=== PATIENT | female | born 1945 | race Caucasian/White ===

== ENCOUNTER 2018-07-30 16:37 | Observation (INO) | payer OTHER ==
[~2018-07-30] VITALS: Ht 160 cm; Wt 55.4 kg
[2018-07-30] MEDS ORDERED: Micro-K10 MEQ (17:25)
[2018-07-30] MEDS ORDERED: TRAZ50 PO (17:25)
[2018-07-30] MEDS ORDERED: TRIA50 PO (17:25)
[2018-07-30 17:34] LABS: Source, Urine Clean Catch
[2018-07-30 17:37] LABS: BASOPHILS ABSOLUTE AUTO 0.03 K/mm3 (0.00-0.23); BASOPHILS PERCENT AUTO 0 % (0-2); EOSINOPHILS ABSOLUTE AUTO 0.17 K/mm3 (0.00-0.68); EOSINOPHILS PERCENT AUTO 2 % (0-6); Hematocrit 39.8 % (33.0-51.0); Hemoglobin 13.5 g/dL (11.5-16.0); IMMATURE GRAN ABSOLUTE AUTO 0.03 K/mm3 (0.00-0.10); IMMATURE GRAN PERCENT AUTO 0 % (0-1); LYMPHOCYTES PERCENT AUTO 27 % (21-46); MONOCYTES ABSOLUTE AUTO 0.43 K/mm3 (0.16-1.47); MONOCYTES PERCENT AUTO 5 % (4-13); Mean Corpuscular HGB 32.2 pg (26.0-34.0); Mean Corpuscular HGB Conc 33.9 g/dL (31.5-36.5); Mean Corpuscular Volume 95 fL (80-100); Mean Platelet Volume 10.2 fL (9.1-12.4); NEUTROPHILS ABSOLUTE AUTO 5.45 K/mm3 (1.96-9.15); NEUTROPHILS PERCENT AUTO 65 % (41-73); Platelet Count 322 K/mm3 (150-400); RDW Coefficient Variation 12.3 % (11.7-14.2); RDW Standard Deviation 43.1 fL (35.1-46.3); Red Blood Cell Count 4.19 M/mm3 (3.80-5.20); White Blood Cell Count 8.41 K/mm3 (4.00-11.30)
[2018-07-30 17:48] LABS: Appearance, Urine Clear (Clear); Bilirubin, Urine Neg (Neg); Blood, Urine 1+ (Neg); Color, Urine Yellow (P-Yellow); Glucose Qualitative, Urine Neg (Neg); Ketones, Urine Neg (Neg); Leukocyte Esterase, Urine Neg (Neg); Nitrite, Urine Neg (Neg); Protein, Urine Neg (Neg); Urobilinogen, Urine NORM (Normal)
[2018-07-30 18:01] LABS: Bacteria Mod /hpf; Squamous Epithelial Cells Rare /hpf (Few); White Blood Cells, Urine 0-2 /hpf (0-5)
[2018-07-30 18:06] LABS: Alanine Aminotransfer (ALT/SGP 26 U/L (12-78); Albumin, Blood 3.6 g/dL (3.4-5.0); Albumin/Globulin Ratio 0.9 (0.8-1.8); Alk Phos 60 U/L (50-136); Anion Gap 8 mmol/L (6-16); Aspartate Aminotrans (AST/SGOT 27 U/L (12-37); Bilirubin, Total 0.6 mg/dL (0.1-1.0); Blood Urea Nitrogen 19 mg/dL (8-24); Bun/Creatinine Ratio 20.7 (12.0-20.0); CO2, Blood 31 mmol/L (21-32); Calcium, Blood 8.8 mg/dL (8.5-10.1); Chloride, Blood 100 mmol/L (98-108); Creatinine, Blood 0.92 mg/dL (0.40-1.00); Glomerular Filtration Rate >60 (60-); Glucose, Blood 102 mg/dL (70-99); Potassium, Blood 3.3 mmol/L (3.5-5.5); Sodium, Blood 139 mmol/L (136-145); Total Protein, Blood 7.6 g/dL (6.4-8.2)
[2018-07-31] MEDS ORDERED: LORA.5 PO (01:08)
--- NOTE | 2018-07-31 05:30 | NUR ---
PT NEW ADMOT THIS SHIFT FOR LEFT HERNIATED OVARY. PT VSS SINCE ARRIVING TO FLOOR. PT HAS DENIED PAIN/N/V. ABD SOFT, UNABLE TO PALPATE HERNIA,PT DENIES PAIN W/PALP. PT IS UP IN ROOM W/SBA. PT NPO XMEDS, IVF PER ORDERS. PT ANXIOUS AT TIMES, IS COOPERATIVE W/CARE, USING CALL LIGHT FOR ASSISTANCE. GEN SURG CONSULT CALLED IN TO [facility] THIS AM. WILL CONT TO MONITOR UNTIL REP GIVEN TO ONCOMING RN.
[2018-07-31] MEDS ORDERED: GAVILAX17 GM PO (12:19)
--- NOTE | 2018-07-31 14:00 | NUR ---
DISCHARGE PT DISCHARGED HOME FROM UNIT AT APROX 1400. PT GIVEN WRITTEN AND VERBAL DISCHARGE INSTRUCTIONS AND VERBALIZED UNDERSTANDING OF THESE INSTRUCTIONS. NO NEW MEDICATIONS. DECLINED WHEELCHAIR, STATED SHE WOULD "WALK" AND THAT "HER FRIEND" IS PICKING HER UP. INDEPENDENT IN AMBULATION, RN WALKED PT TO ADMISSION DESK.
== END 2018-07-31 14:17 | disposition home or self-care (01) ==
LOC: ER 16:37 → SURS 16:38 → ER 22:18 → SURS 22:18
PROVIDERS: Physician Assistant; ADMIT Internal Medicine
DX: N83.4 Prolapse and hernia of ovary and fallopian tube (principal); I10 Essential (primary) hypertension; E87.6 Hypokalemia; Z88.0 Allergy status to penicillin; Z79.899 Other long term (current) drug therapy
CPT/HCPCS: 36415; 74177; 80053; 81001; 83690; 85025; 96361; 96365; 99285-25; J2405; J3010; J3480; J7030; Q9967

== ENCOUNTER 2018-12-27 11:45 | Day surgery (SDC) | payer OTHER ==
[~2018-12-27] VITALS: Ht 160 cm; Wt 57.9 kg
[~2018-12-27 11:45] MED LIST: GAVILAX17 GM PO; Inderal40 MG PO; LORA.5 PO; Micro-K10 MEQ; POTA10T PO; TRAZ50 PO; TRIA50 PO; Triamterene W/1 EACH PO
[2018-12-27] MEDS ORDERED: Triamterene W/1 EACH PO (12:52)
[2018-12-27] MEDS ORDERED: TRAZ50 PO (12:52)
[2018-12-27] MEDS ORDERED: ACET500 PO (12:53)
[2018-12-27] MEDS ORDERED: Inderal40 MG PO (12:53)
--- NOTE | 2018-12-27 13:12 | NUR ---
12/27/18 1312 Tina Neumann PATIENT NEEDED TO USE BR PRIOR TO SURGERY.
--- NOTE | 2018-12-27 15:02 | NUR ---
12/27/18 1502 Chelita Quintanilla PATIENT TEARFUL AND STATES SURPRISED SHE WOKE UP.
== END 2018-12-27 15:37 | disposition home or self-care (01) ==
LOC: ORSCSDS 11:45
PROVIDERS: Surgery
PROC: 0WUF0JZ Supplement Abdominal Wall with Synthetic Substitute, Open Approach (ICD-10-PCS; principal; 2018-12-27 13:00)
DX: K43.9 Ventral hernia without obstruction or gangrene (principal); I10 Essential (primary) hypertension; K21.9 Gastro-esophageal reflux disease without esophagitis; Z79.899 Other long term (current) drug therapy
CPT/HCPCS: C1781; J0690; J1100; J2250; J2405; J2704; J3010; J7120